=== PATIENT | female | born 1940 | race Caucasian/White ===

== ENCOUNTER 2017-12-03 06:49 | Emergency (ER) | payer MEDICARE, MEDICAID ==
[~2017-12-03] VITALS: Ht 154.9 cm; Wt 76.0 kg
[2017-12-03 07:56] LABS: BASOPHILS % 0.9 % (0.0-2.0); EOSINOPHILS % 2.7 % (0.0-5.0); HEMATOCRIT. 40.8 % (36.0-48.0); HEMOGLOBIN. 13.8 g/dL (12.0-16.0); LYMPHOCYTES % 25.4 % (20.0-50.0); MEAN CORPUSCULAR HEMOGLOBIN 30.6 pg (28.0-32.0); MEAN CORPUSCULAR VOLUME 90.2 fL (81.0-99.0); MEAN PLATELET VOLUME 8.6 fl (7.4-10.4); MONOCYTES % 7.8 % (2.0-8.0); NEUTROPHILS % 63.2 % (40.0-76.0); PLATELET 207 x1000/uL (130-400); RED BLOOD CELL COUNT 4.52 mill/uL (4.2-5.4); RED CELL DISTRIBUTION WIDTH 13.2 % (11.6-14.6)
[2017-12-03 08:03] LABS: CHLORIDE 104 mEq/L (98-107)
[2017-12-03] MEDS ORDERED: MECLIZINE 25MG TABLET PO ONE ×2 (08:30→10:45)
[2017-12-03] MEDS ORDERED: ONDANSETRON HCL 4MG/2ML INJ IV STA ×2 (08:30→10:31)
[2017-12-03] MEDS ORDERED: SODIUM CHLORIDE 0.9% 1,000 ML IV ONE (08:30)
[2017-12-03 11:08] LABS: CLARITY URINE CLEAR (CLEAR); COLOR URINE YELLOW (YELLOW); KETONES URINE NEGATIVE (NEGATIVE); LEUKOCYTE ESTERASE URINE NEGATIVE (NEGATIVE); NITRITE URINE NEGATIVE (NEGATIVE); OCCULT BLOOD URINE TRACE (NEGATIVE); PROTEIN URINE NEGATIVE (NEGATIVE); SPECIFIC GRAVITY URINE 1.006 (1.005-1.030); UROBILINOGEN URINE 0.2 E.U./dL (0.2-1.0)
[2017-12-03 12:29] VITALS: BP 153/70
== END 2017-12-03 12:32 | disposition home or self-care (01) ==
LOC: ER 06:49
DX: I10 Essential (primary) hypertension (principal); R42 Dizziness and giddiness
CPT/HCPCS: 36415; 70450; 80053; 81003; 85025; 93005; 96361; 96374; 96376; 99285; J2405; J7030; J8597

== ENCOUNTER 2023-11-22 02:44 | Emergency (ER) | payer MEDICARE ==
[~2023-11-22] VITALS: Ht 149.9 cm; Wt 86.0 kg
[2023-11-22 03:24] VITALS: TEMP 98.2; O2SAT 97
[2023-11-22 03:28] VITALS: BP 111/67; PULSE 82; RESP 19; O2SAT 98
== END 2023-11-22 04:44 | disposition left against medical advice (07) ==
LOC: ER 02:44
DX: R53.1 Weakness (principal); Z53.21 Procedure and treatment not carried out due to patient leaving prior to being seen by health care provider